=== PATIENT | female | born 1970 | race Caucasian/White ===

== ENCOUNTER → 2023-07-07 17:05 | Outpatient (REF) | payer BC, SELFPAY | LOC: WDC 17:05 | PROVIDERS: ATTENDING PHYSICIAN Obstetrics & Gynecology; FAMILY PHYSICIAN Family Medicine | DX: Z12.31 Encounter for screening mammogram for malignant neoplasm of breast (principal) | CPT/HCPCS: 77063; 77067 ==

== ENCOUNTER → 2023-07-08 06:35 | Outpatient (REF) | payer BC, SELFPAY | LOC: HWRAD 06:35 | PROVIDERS: ATTENDING PHYSICIAN Nurse Practitioner Family; FAMILY PHYSICIAN Family Medicine | DX: R22.1 Localized swelling, mass and lump, neck (principal) | CPT/HCPCS: 76536 ==

== ENCOUNTER → 2024-07-09 17:28 | Outpatient (REF) | payer BC, SELFPAY | LOC: WDC 17:28 | PROVIDERS: ATTENDING PHYSICIAN Obstetrics & Gynecology; FAMILY PHYSICIAN Family Medicine | DX: Z12.31 Encounter for screening mammogram for malignant neoplasm of breast (principal) | CPT/HCPCS: 77063; 77067 ==